=== PATIENT | male | born 1975 | race Caucasian/White ===

== ENCOUNTER → 2020-12-07 | Outpatient (CLI) | payer OTHER ==
--- NOTE | 2020-12-08 04:10 | MR ---
EXAMINATION TYPE: MR knee RT wo/w con DATE OF EXAM: 12/07/2020 COMPARISON: None HISTORY: Lump on Rt knee-lateral/anterior, marked area of interest, pain CONTRAST: Standard multiplanar, multisequence MRI departmental protocol utilizing 9.5 mL intravenous Gadavist g adolinium contrast. The anterior and posterior cruciate ligaments are intact. There is small knee joint effusion. There i s a marker placed in the area of a lump. This area shows some septated cystic joint fluid. This exten ds lateral to the lateral collateral ligament. There is intrasubstance tear posterior horn of the heel meniscus without extension to the articular s urface. There is some mild thinning of the lateral meniscus. There is cystic changes within the anter ior horn of the lateral meniscus. The collateral ligaments appear intact. There is no evidence of pop liteal cyst. I see no focal bone destruction. There is no evidence of a fracture. The patella is inta ct. IMPRESSION: No evidence of ligamentous tear. Intrasubstance tear posterior horn medial meniscus. Cystic degenerat ion seen in the anterior horn lateral meniscus. Minimal narrowing of the lateral joint space. There is 1.6 x 1 cm cystic mass in the area of concern over the lateral knee that is consistent with a synovial cyst. Knee joint effusion. Septated cystic component of the joint effusion seen in the ant erior aspect of the lateral joint space.
== END | disposition home or self-care (01) ==
LOC: RADMRIMAIN 06:42
PROVIDERS: ATTEND Orthopaedic Surgery
DX: M23.321 Other meniscus derangements, posterior horn of medial meniscus, right knee (principal)
CPT/HCPCS: 73723; A9585